=== PATIENT | female | born 1955 | race Caucasian/White ===

== ENCOUNTER 2019-12-13 10:26 | Outpatient (CLI) | payer BC, SELFPAY ==
--- NOTE | ~2019-12-13 | MM_ITS ---
EXAMINATION: MM screening [facility] BI w louise HISTORY: Screening mammogram TECHNIQUE: Craniocaudal and mediolateral oblique 3-D tomosynthesis images were obtained and synthetic 2-D images were generated. CAD analysis was submitted and interpreted. COMPARISON: No prior mammogram is available for comparison at this institution. BREAST PARENCHYMAL COMPOSITION: There are scattered areas of fibroglandular density. FINDINGS: There is no evidence of suspicious mass, calcification, or architectural distortion to sugg est malignancy in either breast. There has been no suspicious interval change. IMPRESSION: 1. No mammographic evidence of malignancy. 2. Recommend routine screening mammography in one year. BI-RADS Category 1: Negative Reviewed, dictated and finalized at location A.
== END 2019-12-13 10:27 | disposition home or self-care (01) ==
PROVIDERS: PCP Family Medicine Adolescent Medicine; Visit Provider Obstetrics & Gynecology
DX: Z12.31 Encounter for screening mammogram for malignant neoplasm of breast (principal)
CPT/HCPCS: 77063; 77067

== ENCOUNTER 2021-04-18 09:48 | Emergency (ER) | payer OTHER, SELFPAY ==
--- NOTE | ~2021-04-18 | XR_ITS ---
EXAMINATION: XR foot LT min 3V DATE: 04/18/2021 10:14 INDICATION: Left first metatarsal pain post injury TECHNIQUE: Dorsoplantar, two oblique and lateral views of the left foot were obtained. COMPARISON: None. FINDINGS: Alignment is normal. No fracture. Moderate osteoarthritis of the first metatarsophalangeal joint. Mil d osteoarthritis at several of the tarsal metatarsal and interphalangeal joints. Moderate-sized plant ar calcaneal spur. Soft tissues are unremarkable. IMPRESSION: 1. No acute osseous abnormality. 2. Mild to moderate polyarticular osteoarthritis greatest at the first metatarsophalangeal joint. Reviewed, dictated and finalized at location A. GE HAND IMPRESSION: 1. No acute osseous abnormality. 2. Mild to moderate polyarticular osteoarthritis greatest at the first metatars ophalangeal joint.
--- NOTE | 2021-04-18 09:52 | ED.LOWEXIN ---
HPI - Extremity Injury (Lower) General Chief Complaint: Extremity Injury, Lower Stated Complaint: left foot pain Time Seen by Provider: 04/18/21 10:21 Source: patient and RN notes reviewed Mode of arrival: ambulatory Limitations: no limitations History of Present Illness HPI Narrative: 65-year-old female presents with concern for left foot injury patient reports on Friday she was going to a client's house when she stepped on a rotten board in her foot through the deck. She reports dorsal pain at the base of the first, second, third digits. Reports she is to ice which decreased the swelling. She reports pain at rest and worsening pain with walking. She denies decreased sensation, strength. MD complaint: foot injury Related Data Home Medications Medication Instructions Recorded Confirmed calcium carbonate 600 mg (1,500 1 tablet PO DAILY 04/04/20 mg)-vitamin D3 200 unit tablet multivitamin 1 tablet PO DAILY 04/04/20 omega 6-vmz-akt-fish oil 100 cap PO 04/04/20 mg-160 mg-1,000 mg capsule levothyroxine [Synthroid] 100 mcg PO DAILY 04/18/21 04/18/21 Allergies Allergy/AdvReac Type Severity Reaction Status Date / Time No Known Allergies Allergy Unknown Verified 04/18/21 10:22 Review of Systems Review of Systems: CONSTITUTIONAL: Denies malaise, chills, sweats, or fever. SKIN: Denies lacerations, abrasions MUSCULOSKELETAL: Reports left dorsal foot pain, swelling, bruising NEUROLOGIC: Denies numbness, weakness All systems reviewed & are unremarkable except as noted in HPI and below PMFSH Past Medical History Medical History Hypothyroidism Surgical History Surgical History H/O umbilical hernia repair History of section History of laparoscopy History of tonsillectomy and adenoidectomy History of total hysterectomy Social History Social History Smoking status: Never smoker Alcohol intake: current Comments At time of signature, agree with nursing past medical, surgical, social and family history. There is no relevant family history pertinent to the presenting complaint Exam Narrative: GENERAL: Well-appearing, well-nourished, and in no acute distress. HEAD: Normocephalic, atraumatic. EYES: PERRLA, conjunctivae clear NECK: Supple. CHEST: Speaks in full sentences. No respiratory distress. HEART: Regular rate and rhythm. Normal and equal peripheral pulses. EXTREMITIES: [Xxx] has normal strength and sensation, normal range of motion. No edema or ecchymosis. 5/5 strength with [xxx] flexion and extension. Normal sensation with sensitivity to light touch and pain. No point tenderness. No open wounds, no skin tenting, no devitalized tissue or atrophy, no trophic changes, no obvious deformity, alignment normal, nearby joints and structures intact. Distal pulses palpable and equal bilaterally, skin warm, dry, pink. Capillary refill less than 3 seconds. SKIN: Warm, dry, no rash. NEURO: Alert and oriented x3. PSYCH: Normal mood and affect Course Course Emergency Course: Patient is aware of diagnosis, understands and agrees to treatment plan. Anticipatory guidance given. Patient agrees to follow-up as directed and is aware of reasons to seek care at the emergency department. Portions of this record may have been created with voice recognition software Vital Signs Vital signs: Reviewed. MDM - Extremity Injury (Lower) MDM Narrative Medical decision making narrative: Patients injury and pain is consistent with musculoskeletal etiology. No signs of neurological or vascular compromise on exam. Compartments and tissues are soft without signs of compartment syndrome. Pain is felt appropriate for further evaluation on an outpatient basis. Imaging Data Radiologist's impression: EXAMINATION: XR foot LT min 3V DATE: 04/18/2021 10:14 INDICATION:
[2021-04-18 10:03] VITALS: BP 151/82; PULSE 73; RESP 16; TEMP 36.9; O2SAT 99
== END 2021-04-18 10:40 | disposition home or self-care (01) ==
PROVIDERS: Emergency Provider Nurse Practitioner; PCP Family Medicine Adolescent Medicine
DX: S99.922A Unspecified injury of left foot, initial encounter (principal); W13.8XXA Fall from, out of or through other building or structure, initial encounter; E03.9 Hypothyroidism, unspecified
CPT/HCPCS: 73630; 99213; G0463

== ENCOUNTER → 2021-06-25 15:52 | Outpatient (CLI) | payer OTHER, SELFPAY ==
--- NOTE | ~2021-06-25 | XR_ITS ---
EXAMINATION: XR foot LT min 3V EXAM DATE: 06/25/2021 16:26 INDICATION: M79.672 - Pain in left foot . Attention great MTP joint. TECHNIQUE: Left foot dorsoplantar, lateral and oblique projections obtained and reviewed. Comparison is made to prior examination from 04/18/2021. FINDINGS: Left metatarsal bones unremarkable. There is a moderate-sized calcaneal spur inferiorly. There is mild to moderate 1st metatarsophalangeal joint primary osteoarthritis. Otherwise no more t smith mild polyarticular osteoarthritis. There are no bony erosions identified. There are no acute frac tures identified. IMPRESSION: 1. Mild to moderate left 1st MTP osteoarthritis. 2. Inferior calcaneal spur. Reviewed, dictated and finalized at location G. FARM HELPER
== END ==
PROVIDERS: PCP Family Medicine Adolescent Medicine; Visit Provider Physician Assistant
DX: M19.072 Primary osteoarthritis, left ankle and foot (principal); M77.32 Calcaneal spur, left foot
CPT/HCPCS: 73630

== ENCOUNTER 2021-10-02 08:22 | Outpatient (CLI) | payer MEDICARE, SELFPAY ==
--- NOTE | ~2021-10-02 | MM_ITS ---
EXAMINATION: MM screening [facility] BI w louise HISTORY: Screening TECHNIQUE: Craniocaudal and mediolateral oblique 3-D tomosynthesis images were obtained and synthetic 2-D images were generated. CAD analysis was submitted and interpreted. COMPARISON: Comparison to multiple prior studies sequentially, with oldest reviewed study dated 03/26. BREAST PARENCHYMAL COMPOSITION: There are scattered areas of fibroglandular density. FINDINGS: There is no evidence of suspicious mass, calcification, or architectural distortion to sugg est malignancy in either breast. There has been no suspicious interval change. IMPRESSION: 1. No mammographic evidence of malignancy. 2. Recommend routine screening mammography in one year. BI-RADS Category 1: Negative Reviewed, dictated and finalized at location A.
== END 2021-10-02 08:23 | disposition home or self-care (01) ==
LOC: ANHIMG 08:26
PROVIDERS: PCP Family Medicine Adolescent Medicine; Visit Provider Student in an Organized Health Care Education/Training Program
DX: Z12.31 Encounter for screening mammogram for malignant neoplasm of breast (principal)
CPT/HCPCS: 77063; 77067

== ENCOUNTER 2022-05-03 09:33 | Outpatient (CLI) | payer MEDICARE, SELFPAY ==
--- NOTE | ~2022-05-03 | DEXA_ITS ---
Bone Density Report Name: MIKHAIL PERES Age: 67 Sex: Female Ethnicity: White Date of : 1955 Indication: postmenopausal; screening for osteoporosis; hysterectomy; Referring Provider: JACKSON REEDER Study: Bone densitometry was performed. Exam Date: May 03, 2022 Accession number: [id number] Bone Density: Region BMD T-score Z-score Classification AP Spine(L1-L4) 0.944 -0.9 1.0 Normal Femoral Neck (Left) 0.802 -0.4 1.2 Normal Total Hip (Left) 1.000 0.5 1.8 Normal Femoral Neck (Right) 0.789 -0.5 1.1 Normal Total Hip (Right) 0.921 -0.2 1.2 Normal Total Hip Mean 0.961 0.2 1.5 Normal World Health Organization criteria for BMD impression classify patients as: Normal (T-score at or above -1.0), Osteopenia (T-score between -1.0 and -2.5), or Osteoporosis (T-score at or below -2.5). 10-year Fracture Risk: FRAX not reported because: All T-scores for Spine Total, Hip Total, Femoral Neck at or above -1.0 Previous Exams: Region Exam Age BMD T-score BMD Change BMD Change Date g/cm2 vs Baseline vs Previous AP Spine (L1-L4) 05/03/2022 67 0.944 -0.9 -0.021 (-2.2%) -0.016 (-1.6%) 09/15/2018 63 0.960 -0.8 -0.006 (-0.6%) -0.006 (-0.6%) 05/09/2016 61 0.966 -0.7 Total Hip(Left) 05/03/2022 67 1.000 0.5 0.026 (2.6%) 0.004 (0.4%) 09/15/2018 63 0.996 0.4 0.022 (2.2%) 0.022 (2.2%) 05/09/2016 61 0.974 0.3 Total Hip(Right) 05/03/2022 67 0.921 -0.2 -0.075 (-7.6%) -0.082 (-8.2%) 09/15/2018 63 1.003 0.5 0.006 (0.6%) 0.006 (0.6%) 05/09/2016 61 0.997 0.4 *Denotes significance at 95% confidence level, LSC for AP Spine = 0.022 g/cm2, LSC for Total Hip = 0.027 g/cm2 Clinical Information Provided by Patient: Has the following medical conditions: Hysterectomy Patient maximum height was 63 Menopause Age: 53 Drinks caffeinated beverages Onset of menses at age 12 Number of children 2 Impression: The patient has normal bone mass. The BMD for the Total Hip(Right) decreased, changing by -8.2% since the last DXA exam. Discussion: BONE DENSITY IS ABOVE THE MINIMUM DESIRABLE LEVEL AT ALL SKELETAL SITES TESTED. This patient?s bone mineral density is above the minimum desirable level (T-score -1.0 or better) at all sites measured. The patient should follow a healthful lifestyle (good nutrition with adequate calcium and vitamin D, and appropriate weight-bearing exercise). Follow-Up: Co
== END 2022-05-03 09:34 | disposition home or self-care (01) ==
PROVIDERS: PCP Family Medicine Adolescent Medicine; Visit Provider Student in an Organized Health Care Education/Training Program
DX: Z78.0 Asymptomatic menopausal state (principal)
CPT/HCPCS: 77080

== ENCOUNTER 2022-11-28 10:07 | Outpatient (CLI) | payer MEDICARE, SELFPAY ==
--- NOTE | ~2022-11-28 | MM_ITS ---
EXAMINATION: MM screening [facility] BI w louise HISTORY: Screening mammogram TECHNIQUE: Craniocaudal and mediolateral oblique 3-D tomosynthesis images were obtained and synthetic 2-D images were generated. CAD analysis was submitted and interpreted. COMPARISON: 10/02/2021, 12/13/2019, 09/15/2018 BREAST PARENCHYMAL COMPOSITION: There are scattered areas of fibroglandular density. FINDINGS: No suspicious mass, calcification, or architectural distortion are identified in either danita ast to suggest malignancy. There has been no suspicious interval change. IMPRESSION: 1. No mammographic evidence of malignancy. 2. Recommend routine screening mammography in one year. BI-RADS Category 1: Negative Reviewed, dictated and finalized at location A.
== END 2022-11-28 10:08 | disposition home or self-care (01) ==
LOC: ANHIMG 10:14
PROVIDERS: PCP Family Medicine Adolescent Medicine; Visit Provider Obstetrics & Gynecology
DX: Z12.31 Encounter for screening mammogram for malignant neoplasm of breast (principal)
CPT/HCPCS: 77063; 77067

== ENCOUNTER 2023-12-01 10:49 | Outpatient (CLI) | payer MEDICARE, SELFPAY ==
--- NOTE | ~2023-12-01 | XR_ITS ---
AP and lateral views of the right hip Clinical history: Pain Findings: No acute fracture or dislocation is seen. Osseous alignment is anatomic. Right hip joint is preserved. Soft tissues are unremarkable. Impression: No significant abnormality is seen. Reviewed, dictated and finalized at location M. Impression: No significant abnormality is seen.
== END 2023-12-01 10:50 ==
LOC: MICIMG 10:51
PROVIDERS: PCP Family Medicine Adolescent Medicine; Visit Provider Family Medicine Adolescent Medicine
DX: M25.551 Pain in right hip (principal)
CPT/HCPCS: 73502

== ENCOUNTER 2023-12-25 10:16 | Outpatient (CLI) | payer MEDICARE, SELFPAY ==
--- NOTE | ~2023-12-25 | MR_ITS ---
MRI of the right hip Clinical history: Pain Technique: Coronal T1-weighted, T2-weighted, and proton-density fat-sat images, and axial T1-weighted and proton-density fat-sat images were acquired through the pelvis. Coronal T2-weighted images and c oronal, axial, and sagittal proton-density fat-sat images were acquired through the right hip. Findings: There is no fracture or avascular necrosis of either hip. Bone marrow signals the proximal femora and pelvic bones are unremarkable. No right acetabular labral tear seen. Articular cartilage o f the hip joints is relatively well-preserved. Small bilateral hip joint effusions are present. Visualized musculature about the pelvis and right hip is unremarkable. No muscle atrophy or edema. No bursitis. Visualized tendons are intact. No soft tissue mass or fluid collection seen. IMPRESSION: Small bilateral hip joint effusions, nonspecific. No other significant abnormality seen. Reviewed, dictated and finalized at [facility].
== END 2023-12-25 10:17 ==
PROVIDERS: PCP Family Medicine Adolescent Medicine; Visit Provider Family Medicine Adolescent Medicine
DX: M25.451 Effusion, right hip (principal); M25.452 Effusion, left hip
CPT/HCPCS: 73721

== ENCOUNTER 2024-02-20 12:55 | Outpatient (CLI) | payer MEDICARE, SELFPAY ==
--- NOTE | ~2024-02-20 | MM_ITS ---
EXAMINATION: MM screening [facility] BI w louise HISTORY: Screening TECHNIQUE: Craniocaudal and mediolateral oblique 3-D tomosynthesis images were obtained and synthetic 2-D images were generated. CAD analysis was submitted and interpreted. COMPARISON: Comparison to multiple prior studies sequentially, with oldest reviewed study dated 04/25. BREAST PARENCHYMAL COMPOSITION: Not dense: There are scattered areas of fibroglandular density.. FINDINGS: There is no evidence of suspicious mass, calcification, or architectural distortion to sugg est malignancy in either breast. There has been no suspicious interval change. IMPRESSION: 1. No mammographic evidence of malignancy. 2. Recommend routine screening mammography in one year. BI-RADS Category 1: Negative Reviewed, dictated and finalized at location B.
--- NOTE | ~2024-02-20 | DEXA_ITS ---
Bone Density Report Name: MIKHAIL PERES Age: 68 Sex: Female Ethnicity: White Date of : 1955 Indication: postmenopausal; screening for osteoporosis; height loss; hysterectomy; Referring Provider: TOD FLORES Study: Bone densitometry was performed. Exam Date: February 20, 2024 Accession number: [id number] Bone Density: Region BMD T-score Z-score Classification AP Spine(L1-L4) 0.940 -1.0 1.1 Normal Femoral Neck (Left) 0.784 -0.6 1.1 Normal Total Hip (Left) 0.968 0.2 1.6 Normal Femoral Neck (Right) 0.793 -0.5 1.2 Normal Total Hip (Right) 0.928 -0.1 1.3 Normal Femoral Neck Mean 0.789 -0.5 1.2 Normal Total Hip Mean 0.948 0.1 1.5 Normal World Health Organization criteria for BMD impression classify patients as: Normal (T-score at or above -1.0), Osteopenia (T-score between -1.0 and -2.5), or Osteoporosis (T-score at or below -2.5). 10-year Fracture Risk: FRAX not reported because: All T-scores for Spine Total, Hip Total, Femoral Neck at or above -1.0 Clinical Information Provided by Patient: Has the following medical conditions: Hysterectomy Patient maximum height was 64 Menopause Age: 50 No regular weight bearing exercise Drinks caffeinated beverages Onset of menses at age 11 Number of children 2 Impression: The patient has normal bone mass. Discussion: BONE DENSITY IS ABOVE THE MINIMUM DESIRABLE LEVEL AT ALL SKELETAL SITES TESTED. This patient?s bone mineral density is above the minimum desirable level (T-score -1.0 or better) at all sites measured. The patient should follow a healthful lifestyle (good nutrition with adequate calcium and vitamin D, and appropriate weight-bearing exercise). Follow-Up: Consider repeating this study in 5 years or sooner if there is some new clinical indication. Reported by: KATARZYNA on 02/20/2024 1:27:00 PM. Reviewed, dictated and finalized at location Isabel APODACA
== END 2024-02-20 12:56 | disposition home or self-care (01) ==
LOC: CHSIMG 12:57
PROVIDERS: PCP Family Medicine Adolescent Medicine; Visit Provider Nurse Practitioner Obstetrics & Gynecology
DX: Z12.31 Encounter for screening mammogram for malignant neoplasm of breast (principal); Z78.0 Asymptomatic menopausal state
CPT/HCPCS: 77063; 77067; 77080

== ENCOUNTER 2024-08-17 01:09 | Day surgery (SDC) | payer MEDICARE, SELFPAY ==
--- OUTSIDE RECORDS SUMMARY | 2024-08-17 01:11 | XMS_ITS | Clinical Summary ---
Author Organization [facility] Address [facility] [place] [address] Care Team Providers Care Field Contact Technician Name Role Phone Agustín Quigley MD Primary Care Prov ider Soledad Polanco MD Unavailable [phone] Allergies No known active allergies Medications albuterol HFA (PROVENTIL HFA,VENTOLIN HFA,PROAIR HFA) 90 mcg/actuation inhaler 2 puffs every 4 (four) hours as needed 1 Active SUMAtriptan (IMITREX) 100 mg tablet TAKE 1 TABLET BY MOUTH AT ONSET OF HEADACHE; IF NO RELIEF, MAY REPEAT 1 TABLET AFTER AT LEAST 2 HOURS; MAX 2 TABLETS IN 24 HOURS 2 Active levothyroxine (SYNTHROID) 112 mcg tablet Brand name Synthroid - 7 pills per week 2 Active Active Problems Problem Noted Date Diagnosed Date COVID-19 12/03/2021 Assessment & Plan (12/03/2021 11:09 AM CDT): History of vaccination. No effect on her thyroid management Has immunity to COVID-19 virus 12/03/2021 Overview (12/03/2021): History of vaccine x2. However, she had some abnormal lab work a month or so after her second shot, so she has been hesitant to get the booster so far Assessment & Plan (07/08/2022 10:00 AM BUTT PRESSER): Fully vaccinated, eligible for booster but history of previous concerns after second shot. Assessment & Plan (12/03/2021 11:09 AM CDT): History of vaccine x2, current COVID infection. 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 Assessment & Plan (07/19/2021 11:31 AM BUTT PRESSER): Ongoind surveillance. Needs B12 level at this time. Mixed hyperlipidemia 07/17/2021 Overview (07/17/2021): Images from the original note were not included. Assessment & Plan (01/11/2024 3:08 PM CDT): Managed by her PCP, but needs optimal thyroid management. LDL and Tg improved Assessment & Plan (07/11/2022 7:22 AM BUTT PRESSER): Managed by her PCP, but needs optimal thyroid management and follow-up labs Assessment & Plan (12/03/2021 11:10 AM CDT): Managed by her PCP, but needs optimal thyroid medication. Assessment & Plan (07/19/2021 11:32 AM BUTT PRESSER): Managed by her PCP, but needs optimal thyroid medication. Acquired hypothyroidism 07/17/2021 Assessment & Plan (01/11/2024 3:09 PM CDT): Somewhat symptomatic, TSH low but need to see actual thyroid numbers. May need to adjust meds if she shows progressive bone loss. Assessment & Plan (07/11/2022 7:21 AM BUTT PRESSER): Clinically euthyroid, doing well but needs follow-up labs Assessment & Plan (12/03/2021 11:11 AM CDT): Symptomatically markedly improved on her current medication regimen, so it would not be beneficial to check lab work right now. Continue current management and consider follow-up labs at her next visit in 6 months Assessment & Plan (07/19/2021 11:30 AM BUTT PRESSER): Despite labs, she has symptoms of mildly low thyroid activity, so may benefit from a slight increase in her thyroid medication. We can get baseline levels before the change. Encounters Date Type Department Care Team Description 06/11/2024 Telephone [facility] Floor [address] [place] [address] Lianet Richards RMA from Last 3 Months Immunizations Immunization Administration Dates Next Due Influenza, Quadrivalent, Hig h Dose, Preservative Free, Intrr 04/09/2022 Surgical History Surgery Date Site/Laterality Comments HYSTERECTOMY W/ BILATERAL SALPINGOOPHORECTOMY 05/26/2008 - 05/25/2009 TUBAL LIGATION 05/26/1987 - 05/25/1988 SECTION 1976 and 1981 Medical History Medical History Date Comments x2 - C-sections 1976 and 1981 Cornea ulcer Social History Tobacco Use Types Packs/Day Years Used Date Smoking Tobacco: Never Smokeless Tobacco: Never Tobacco Cessation:Counseling Given: Not Answered Personal Safety Answer Date Recorded Getting School Help Needed Not on file 07/26 Comments Unknown Sex and Gender Information Value Date Recorded Sex Assigned at Not on file Legal Sex Female 11:45 AM BUTT PRESSER Gender Identity Not on file Sexual Orientation Not on file 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 file Not on file Not on f ile Obstetrics History Last Filed Vital Signs Vital Sign Reading Time Taken Comments Blood Pressure 163/87 07/09/2022 1:58 PM BUTT PRESSER Pulse 68 07/09/2022 1:58 PM BUTT PRESSER Temperature 37 C (98.6 F) 07/09/2022 1:58 PM BUTT PRESSER Respiratory Rate - - Oxygen Saturation - - Inhaled Oxygen Concentration - - Weight 95.7 kg (211 lb) 07/09/2022 1:58 PM BUTT PRESSER Height 160 cm (5' 3 ) 07/09/2022 1:58 PM BUTT PRESSER Body Mass Index 37.38 07/09/2022 1:58 PM BUTT PRESSER Plan of Treatment Health Maintenance Due Date Last Done Comments Breast Cancer Screening-Mammogram 1955 Colon Cancer Screening-Colonoscopy 1955 Depression Screening 1955 Fall Risk Assessment 1955 Hepatitis C Screening 1955 Osteoporosis Screening-Bone Density Scan 1955 DTaP/Tdap/Td Vaccine (1 - Tdap) 1966 Hepatitis B Screening 1973 Pneumococcal vaccine 65+ (1 of 1 - PCV) 2005 Zoster Vaccine (1 of 2) 2005 Well Visit 65+ 2020 Covid-19 Vaccine ( season) 2024, 07/18/2020 Influenza Vaccine (#1) 2024 04/09/2022 Insurance MEDICARE AETNA SENIOR SUPPLEMENT MEDICARE AETNA MEDICARE AETNA Care Teams Field Contact Technician Relationship Specialty Start Date End Date Agustín Quigley MD [address] [place] [id number] PCP - General Family Medicine 07/17/21 Soledad Polanco MD [address] [place] [id number] Referring Physician Endocrinology Diabetes & Metabolism 07/19/21
--- OUTSIDE RECORDS SUMMARY | 2024-08-17 01:11 | XMS_ITS | Encounter Summary ---
Author Organization [facility] Address [address] [place] [address] Phone Care Team Providers Care Corporate Securities Research Analyst Name Role Phone No, Physician Primary Care Provider [phone] Agustín Quigley MD Primary Care Prov ider Soledad Polanco MD Unavailable [phone] Encounter Details Date Type Department Care Team (Latest Contact Info) Description 04/18/2021 Orders Only [facility] E[facility] Scanning, Provider Social History Tobacco Use Types Packs/Day Years Used Date Smoking Tobacco: Never Assessed Comments Unknown Sex and Gender Information Value Date Recorded Sex Assigned at Not on file Legal Sex Female 11:45 AM ACCOUNT TECHNICIAN Gender Identity Not on file Sexual Orientation Not on file documented as of this encounter Plan of Treatment Not on file documented as of this encounter Procedures Procedure Name Priority Date/Time Associated Diagnosis Comments SCAN - LABS 04/18/2021 documented in this encounter Results * SCAN - LABS (04/18/2021) us Provider Scanning Final Result documented in this encounter Visit Diagnoses Not on filedocumented in this encounter Care Teams Corporate Securities Research Analyst Relationship Specialty Start Date End Date No, Physician PCP - General 02/03/21 07/16/21 Agustín Quigley MD [address] [place] [id number] PCP - General Family Medicine 07/17/21 Soledad Polanco MD [address] [place] [id number] Referring Physician Endocrinology Diabetes & Metabolism 07/19/21 documented as of this encounter
--- OUTSIDE RECORDS SUMMARY | 2024-08-17 01:11 | XMS_ITS | Encounter Summary ---
Author Organization [facility] Address [address] [place] [address] Phone Care Team Providers Care Glass Toughening Operator Name Role Phone No, Physician Primary Care Provider [phone] Agustín Quigley MD Primary Care Prov ider Soledad Polanco MD Unavailable [phone] Encounter Details Date Type Department Care Team (Latest Contact Info) Description 04/24/2020 Orders Only [facility] E[facility] Scanning, Provider Social History Tobacco Use Types Packs/Day Years Used Date Smoking Tobacco: Never Assessed Comments Unknown Sex and Gender Information Value Date Recorded Sex Assigned at Not on file Legal Sex Female 11:45 AM LOGISTICS SUPPLY OFFICER Gender Identity Not on file Sexual Orientation Not on file documented as of this encounter Plan of Treatment Not on file documented as of this encounter Procedures Procedure Name Priority Date/Time Associated Diagnosis Comments SCAN - LABS 04/24/2020 documented in this encounter Results * SCAN - LABS (04/24/2020) us Provider Scanning Final Result documented in this encounter Visit Diagnoses Not on filedocumented in this encounter Care Teams Glass Toughening Operator Relationship Specialty Start Date End Date No, Physician PCP - General 02/03/21 07/16/21 Agustín Quigley MD [address] [place] [id number] PCP - General Family Medicine 07/17/21 Soledad Polanco MD [address] [place] [id number] Referring Physician Endocrinology Diabetes & Metabolism 07/19/21 documented as of this encounter
--- OUTSIDE RECORDS SUMMARY | 2024-08-17 01:11 | XMS_ITS | Referral Summary ---
Author Organization [facility] Address [address] [place] [id number] Care Team Providers Care Religious Studies Professor Name Role Phone Agustín Quigley MD Primary Care Prov ider Soledad Polanco MD Unavailable [phone] Encounters Date Type Department Care Team Description 06/11/2024 Telephone [facility] Surgery [address] [place] [address] Lianet Richards RMA from Last 3 Months Allergies No known active allergies Medications albuterol [...] far Assessment & Plan (07/08/2022 10:00 AM RADIAL ARM SAW OPERATOR): Fully vaccinated, eligible for booster but history of previous concerns after second shot. Assessment & Plan (12/03/2021 11:09 AM CDT): History of vaccine x2, current COVID infection. 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 Assessment & Plan (07/19/2021 11:31 AM RADIAL ARM SAW OPERATOR): Ongoind surveillance. Needs B12 level at this time. Mixed hyperlipidemia 07/17/2021 Overview (07/17/2021): Images from the original note were not included. Assessment & Plan (01/11/2024 3:08 PM CDT): Managed by her PCP, but needs optimal thyroid management. LDL and Tg improved Assessment & Plan (07/11/2022 7:22 AM RADIAL ARM SAW OPERATOR): Managed by her PCP, but needs optimal thyroid management and follow-up labs Assessment & Plan (12/03/2021 11:10 AM CDT): Managed by her PCP, but needs optimal thyroid medication. Assessment & Plan (07/19/2021 11:32 AM RADIAL ARM SAW OPERATOR): Managed by her PCP, but needs optimal thyroid medication. Acquired hypothyroidism 07/17/2021 Assessment & Plan (01/11/2024 3:09 PM CDT): Somewhat symptomatic, TSH low but need to see actual thyroid numbers. May need to adjust meds if she shows progressive bone loss. Assessment & Plan (07/11/2022 7:21 AM RADIAL ARM SAW OPERATOR): Clinically euthyroid, doing well but needs follow-up labs Assessment & Plan (12/03/2021 11:11 AM CDT): Symptomatically markedly improved on her current medication regimen, so it would not be beneficial to check lab work right now. Continue current management and consider follow-up labs at her next visit in 6 months Assessment & Plan (07/19/2021 11:30 AM RADIAL ARM SAW OPERATOR): Despite labs, she has symptoms of mildly low thyroid activity, so may benefit from a slight increase in her thyroid medication. We can get baseline levels before the change. 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 Not on file Not on file Not on f ile Last Filed Vital Signs Vital Sign Reading Time Taken Comments Blood Pressure 163/87 07/09/2022 1:58 PM RADIAL ARM SAW OPERATOR Pulse 68 07/09/2022 1:58 PM RADIAL ARM SAW OPERATOR Temperature 37 C (98.6 F) 07/09/2022 1:58 PM RADIAL ARM SAW OPERATOR Respiratory Rate - - Oxygen Saturation - - Inhaled Oxygen Concentration - - Weight 95.7 kg (211 lb) 07/09/2022 1:58 PM RADIAL ARM SAW OPERATOR Height 160 cm (5' 3 ) 07/09/2022 1:58 PM RADIAL ARM SAW OPERATOR Body Mass Index 37.38 07/09/2022 1:58 PM RADIAL ARM SAW OPERATOR Plan of Treatment Not on file Insurance MEDICARE T [facility] MEDICARE AETNA MEDICARE AETNA Care Teams Religious Studies Professor Relationship Specialty Start Date End Date Agustín Quigley MD [address] [place] [address] PCP - General Family Medicine 07/17/21 Soledad Polanco MD [address] [place] [address] Referring Physician Endocrinology Diabetes & Metabolism 07/19/21
--- OUTSIDE RECORDS SUMMARY | 2024-08-17 01:11 | XMS_ITS | Encounter Summary ---
Author Organization [facility] Address [address] [place] [address] Phone Care Team Providers Care Operating Table Assembler Name Role Phone No, Physician Primary Care Provider [phone] Agustín Quigley MD Primary Care Prov ider Soledad Polanco MD Unavailable [phone] Encounter Details Date Type Department Care Team (Latest Contact Info) Description 04/28/2021 Orders Only [facility] Scanning, Provider Social History Tobacco Use Types Packs/Day Years Used Date Smoking Tobacco: Never Assessed Comments Unknown Sex and Gender Information Value Date Recorded Sex Assigned at Not on file Legal Sex Female 11:45 AM PATENT LEGAL ASSISTANT Gender Identity Not on file Sexual Orientation Not on file documented as of this encounter Plan of Treatment Not on file documented as of this encounter Procedures Procedure Name Priority Date/Time Associated Diagnosis Comments SCAN - LABS 04/28/2021 documented in this encounter Results * SCAN - LABS (04/28/2021) us Provider Scanning Final Result documented in this encounter Visit Diagnoses Not on filedocumented in this encounter Care Teams Operating Table Assembler Relationship Specialty Start Date End Date No, Physician PCP - General 02/03/21 07/16/21 Agustín Quigley MD [address] [place] [id number] PCP - General Family Medicine 07/17/21 Soledad Polanco MD [address] [place] [address] Referring Physician Endocrinology Diabetes & Metabolism 07/19/21 documented as of this encounter
--- OUTSIDE RECORDS SUMMARY | 2024-08-17 01:11 | XMS_ITS | Clinical Summary ---
Author Organization [facility] Address [address] [place] [address] Care Team Providers Care Compo Conveyor Operator Name Role Phone Agustín Quigley MD Primary Care Provider + Source Comments [facility],non-owned Affiliates and Associated Physician Practices is amultiple site organization consisting of ambulatory clinics and hospital sitesin [place], [place], [place] and [place]. This disclosure is being madepursuant to the Care Everywhere program and may not contain all information available regarding this patient. Last updated 18.[facility] Allergies No known active allergies Medications Be aware that medications may not be up to date on this document. Always verify current medications with the patient. No known medications Social History Tobacco Use Types Packs/Day Years Used Date Smoking Tobacco: Never Assessed Sex and Gender Information Value Date Recorded Sex Assigned at Not on file Gender Identity Not on file Sexual Orientation Not on file Plan of Treatment Health Maintenance Due Date Last Done Comments BONE DENSITY TESTING 1955 COLOGUARD (AGES 45-75) - COL ON CA SCREENING 1955 COLON MONITORING 1955 COLONOSCOPY - COLON CA SCREENING 1955 CT COLONOGRAPHY - COLON CA SCREENING 1955 Colorectal Cancer Screening 1955 FIT - COLON CA SCREENING 1955 FLEX SIG - COLON CA SCREENING 1955 LIPID TESTING 1955 MAMMOGRAM 1955 MEDICARE AWV 12 MONTHS 1955 HEPATITIS C SCREENING 04/28/1973 DTAP/TDAP/TD VACCINES (1 - Tdap) 1974 PNEUMOCOCCAL VACCINE 50+ (1 of 1 - PCV) 2005 ZOSTER VACCINE (1 of 2) 2005 COVID-19 VACCINE (1 - 2023-2 5 season) 2024 INFLUENZA VACCINE (#1) 2024 DEPRESSION SCREENING 05/26/2024 Respiratory Syncytial Virus (RSV) Vaccine Pt: or over 60 yrs (1 - 1-dose 75+ series) 2030 HEPATITIS B VACCINE Aged Out No longe r eligible based on patient's age to complete this topic HIB VACCINE Aged Out No longer eligi ble based on patient's age to complete this topic HPV VACCINE Aged Out No longer eligi ble based on patient's age to complete this topic MENINGOCOCCAL (Group B) VACC INE SHARED DECISION-MAKING Aged Out No longer eligibl e based on patient's age to complete this topic MENINGOCOCCAL GROUPS A/C/Y/W VACCINE Aged Out No longer eligible b ased on patient's age to complete this topic Care Teams Compo Conveyor Operator Relationship Specialty Start Date End Date Agustín Quigley MD [address] [address] PCP - General 03/05/19
--- OUTSIDE RECORDS SUMMARY | 2024-08-17 01:11 | XMS_ITS | Encounter Summary ---
Author Organization [facility] Address [address] [place] [address] Care Team Providers Care Electric Milkers Installer Name Role Phone Agustín Quigley MD Primary Care Provider + Encounter Details Date Type Department Care Team (Late st Contact Info) Description 07/08/2023 Lab Requisition [facility] - DermPath Lab [address] [place] [address] Yue Huerta DO [address] [facility] [address] [place] [address] Social History Tobacco Use Types Packs/Day Years Used Date Smoking Tobacco: Never Assessed Sex and Gender Information Value Date Recorded Sex Assigned at Not on file Gender Identity Not on file Sexual Orientation Not on file documented as of this encounter Plan of Treatment Not on file documented as of this encounter Procedures Procedure Name Priority Date/Time Associated Diagnosis Comments DERMATOPATHOLOGY Routine 07/08/2023 10:3 0 AM RAILWAY SIGNAL OPERATOR documented in this encounter Results * DERMATOPATHOLOGY (07/08/2023 10:30 AM RAILWAY SIGNAL OPERATOR) Case Report Dermatopathology Report Case: [id number] Authorizing Provider: Yue Huerta DO Collected: 07/08/2023 10:30 AM Ordering Location: [facility] DermPath Lab Received: 07/09/2023 07:41 AM Pathologist: Shasha Elena MD Specimen: Skin, right anterior LE 4 4:21 PM RAILWAY SIGNAL OPERATOR DERMATOPATHOLOGY LABORATORY Final Diagnosis Specimen A. 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 The specimen consists of a shave biopsy measuring 6x5x1 mm. Jar 0. 4 4:21 PM [facility] DERMATOPATHOLOGY LABORATORY Microscopic Description Specimen A. SKIN, right anterior LE: The epidermis is mildly acanthotic. There is a lichenoid infiltrate with vacuolar changes of basilar keratinocytes and scattered necrotic keratinocytes. 4 4:21 PM [facility] DERMATOPATHOLOGY LABORATORY Disclaimer An external and internal positive and negative controls are appropriate for the histochemical, immunohistochemical and immunofluorescence stain(s) in this case (if any), except where stated explicitly. The performance characteristics of the stain(s) cited in this report were developed and its performance characteristic determined by the Dermatopathology Laboratory at [facility], directed by Dr. Jagruti Elena. These tests need not be, and therefore are not, approved by the [place] Food and Drug Administration. The tests are used for clinical purposes. Billing Codes Specimen Charges Stain Charges 05212 1 4 4:21 PM RAILWAY SIGNAL OPERATOR DERMATOPATHOLOGY LABORATORY Embedded Images 4 4:21 PM [facility] DERMATOPATHOLOGY LABORATORY Pathology/Cytolo gy TISSUE SPECIMEN FROM SKIN / Unknown 07/08/2023 10:30 AM RAILWAY SIGNAL OPERATOR 07/09/2023 7:41 AM RAILWAY SIGNAL OPERATOR Yue Huerta DO LAB - PATHOLOGY/C YTOLOGY ORDERABLES DERMATOPATHOLOGY LABORATORY [facility] - Department of Dermatology [facility] Medicine [address] [place] [address], [address] Floor [address] [phone] documented in this encounter Visit Diagnoses Not on filedocumented in this encounter Care Teams Electric Milkers Installer Relationship Specialty Start Date End Date Agustín Quigley MD [address] [address] PCP - General 03/05/19 documented as of this encounter
--- OUTSIDE RECORDS SUMMARY | 2024-08-17 01:11 | XMS_ITS | Encounter Summary ---
Author Organization [facility] Address [address] [place] [address] Phone Care Team Providers Care Compliance Officer Name Role Phone No, Physician Primary Care Provider [phone] Agustín Quigley MD Primary Care Prov ider Soledad Polanco MD Unavailable [phone] Encounter Details Date Type Department Care Team (Latest Contact Info) Description 12/04/2015 Orders Only [facility] E[facility] Scanning, Provider Social History Tobacco Use Types Packs/Day Years Used Date Smoking Tobacco: Never Assessed Comments Unknown Sex and Gender Information Value Date Recorded Sex Assigned at Not on file Legal Sex Female 11:45 AM SHIP LABORER Gender Identity Not on file Sexual Orientation Not on file documented as of this encounter Plan of Treatment Not on file documented as of this encounter Procedures Procedure Name Priority Date/Time Associated Diagnosis Comments SCAN - LABS 12/04/2015 documented in this encounter Results * SCAN - LABS (12/04/2015) us Provider Scanning Final Result documented in this encounter Visit Diagnoses Not on filedocumented in this encounter Care Teams Compliance Officer Relationship Specialty Start Date End Date No, Physician PCP - General 02/03/21 07/16/21 Agustín Quigley MD [address] [place] [address] PCP - General Family Medicine 07/17/21 Soledad Polanco MD [address] [place] [address] Referring Physician Endocrinology Diabetes & Metabolism 07/19/21 documented as of this encounter
--- OUTSIDE RECORDS SUMMARY | 2024-08-17 01:11 | XMS_ITS | Clinical Summary ---
Author Organization [facility] Address [address], [address] [address] Phone Care Team Providers Care Impregnation Operator Name Role Phone Unavailable Primary Care Provider Unavailabl e Medications polyethylene glycol (MIRALAX) Powder Use entire 255g bottles with clear liquid as directed for 2 day colonoscopy prep. 2 Bottle 7 Active Social History Tobacco Use Types Packs/Day Years Used Date Smoking Tobacco: Never Assessed Comments Unknown Sex and Gender Information Value Date Recorded Sex Assigned at Not on file Legal Sex Female 10:54 PM CDT Gender Identity Not on file Sexual Orientation Not on file Plan of Treatment Health Maintenance Due Date Last Done Comments DEXA Bone Density 1955 Hepatitis C Virus (HCV) Screening 1955 TdaP Immunization 1955 Cologuard 2005 Immunochemical Fecal Occult Blood 2005 Mammogram 2005 Pneumococcal Immunization (5 0+ years) (1 of 1 - PCV) 2005 Zoster Immunization (1 of 2) 2005 Colonoscopy 08/03/2022 08/03/2012 Colorectal Cancer Screening 08/03/2022 Influenza Immunization (#1) 2024 SARS-COV-2 Immunization ( - season) 2024 Respiratory Syncytial Virus (RSV) Immunization (Adult) (1 - 1-dose 75+ series) 2030 08/03/2012 Hepatitis B Immunization Aged Out No longer eligible based on patient's age to complete this topic Meningococcal Immunization (ACWY) Aged Out No longer eligible based on patient's age to complete this topic Rotavirus Immunization Aged Out No lo nger eligible based on patient's age to complete this topic Procedures Procedure Name Priority Date/Time Associated Diagnosis Comments COLONOSCOPY Routine 08/03/2012 from Last 3 Months or Most Recently Relevant to Health Maintenance Results * COLONOSCOPY (08/03/2012) Jaren Zarco DO PROCEDURE/MINOR SURGICAL ORDERA BLES Final Result from Last 3 Months or Most Recently Relevant to Health Maintenance Insurance [facility]
[2024-08-17 08:43] VITALS: BP 140/73; PULSE 74; RESP 18; TEMP 36.1; O2SAT 97; BMI 34.4
[2024-08-17] MEDS: LACTATED RINGERS 1,000 ML 150 ML IV CONT (08:55)
[2024-08-17] MEDS: ONDANSETRON INJ 4 MG/2 ML VIAL IV PUSH (08:59)
--- NOTE | 2024-08-17 08:59 | P.PNAN_ITS ---
Anes - Initial Pre Proc Eval Procedure: Operation Date: 08/17/24 09:30 Proposed Procedures p Esophagogastroduodenoscopy & Colonoscopy - Krishna Barraza MD Date/Time: 08/17/24 08:59 Surgeon: Krishna Barraza MD Pre Op Diagnosis: hx of colon polyps, dysphagia Patient Data Age: 69 Gender: F Height: 1.6 m Weight: 88.2 kg Last Vital Signs Temp 36.1 C L 08/17/24 08:43 Pulse 74 08/17/24 08:43 Resp 18 08/17/24 08:43 BP 140/73 08/17/24 08:43 Pulse Ox 97 08/17/24 08:43 O2 Del Method Room Air 08/17/24 08:43 Allergies Allergy/AdvReac Type Severity Reaction Status Date / Time No Known Allergies Allergy Unknown Verified 08/17/24 08:41 Home Medications ?Medication ?Instructions ?Recorded ?Confirmed ?Type multivitamin (Multiple Vitamins 1 tablet PO DAILY 04/04/20 08/17/24 History tablet) omega 4-jdp-mgd-fish oil 100 1 cap PO DAILY 04/04/20 08/17/24 History mg-160 mg-1,000 mg capsule (Fish Oil) naratriptan 1 mg tablet See Rx Instructions PO .COMPLEX 10/22/23 08/09/24 History Synthroid 112 mcg tablet 112 mcg PO .COMPLEX 90 days #100 02/04/24 08/17/24 Rx (levothyroxine) tabs albuterol sulfate 90 mcg/actuation See Rx Instructions .Route 05/07/24 08/09/24 Rx aerosol inhaler .COMPLEX #9 grams sumatriptan succinate 100 mg tablet See Rx Instructions PO .COMPLEX 05/07/24 08/09/24 Rx #18 tabs ondansetron 4 mg disintegrating 4 mg PO Q6H PRN nausea and 08/09/24 Rx tablet vomiting #4 tabs Patient hx anesthesia problems: none Family hx anesthesia problems: none Results Review: All pre-operative results and documents have been reviewed as part of the pre- operative evaluation. [facility] Past Medical History Medical History Migraine with aura and without status migrainosus Hypothyroidism Surgical History Surgical History History of umbilical hernia repair (2006) History of total hysterectomy with bilateral salpingo-oophorectomy (BSO) (2007) History of tubal ligation (1986) History of cholecystectomy (1984) History of tonsillectomy and adenoidectomy (1962) History of section x2 Social History Social History Smoking status: Never smoker Second hand tobacco smoke exposure: No Alcohol intake: never Substance use: never Substance use type: does not use Living arrangements: alone Occupation/Education: occupation Gender identity (if verbalized by the patient): Female Sexual Orientation (if Verbalized by the Patient): Straight or Heterosexual Spiritual care concerns: No Agree to blood products: Yes Anes - Eval Final PreProcedure Day of Procedure 08/17/24 08:59 Patient weight: obese Heart: regular rate and rhythm Lungs: clear to auscultation Airway: Mallampati scale class II Neurological: alert and oriented Last oral intake: >/= 8 hours ASA classification: II Emergent: no Anesthetic plan: proceed Anesthesia type and monitoring: general GIVS and standard monitoring Results Review: All pre-operative results and documents have been reviewed as part of the pre- operative evaluation. Informed Consent: The patient's anesthetic plan and its attendant risks and benefits were discussed with the patient/family/POA. Questions were solicited and answers provided to the satisfaction of the patient/family/POA.
--- NOTE | 2024-08-17 09:28 | PM.HPGS ---
History of Present Illness History of Present Illness Consent: Risks, benefits, and alternatives have been discussed and questions answered. Patient agrees to proceed with procedure. Chief complaint: hx of colon polyps, dysphagia Narrative: Maggie Scott is a 69 year old female with colon polyp 5 years ago, also h/o esophageal ring with dilation Review of Systems Review of Systems: All systems reviewed & are unremarkable except as noted in HPI and below PMFSH Past Medical History Medical History (Updated 08/17/24 @ 09:29 by Krishna Barraza MD) Colon polyp Migraine with aura and without status migrainosus Hypothyroidism Surgical History Surgical History History of umbilical hernia repair (2006) History of total hysterectomy with bilateral salpingo-oophorectomy (BSO) (2007) History of tubal ligation (1986) History of cholecystectomy (1984) History of tonsillectomy and adenoidectomy (1962) History of section x2 Social History Social History Smoking status: Never smoker Second hand tobacco smoke exposure: No Alcohol intake: never Substance use: never Substance use type: does not use Living arrangements: alone Occupation/Education: occupation Gender identity (if verbalized by the patient): Female Sexual Orientation (if Verbalized by the Patient): Straight or Heterosexual Spiritual care concerns: No Agree to blood products: Yes Meds Home Medications and Allergies Home Medications ?Medication ?Instructions ?Recorded ?Confirmed ?Type multivitamin (Multiple Vitamins 1 tablet PO DAILY 04/04/20 08/17/24 History tablet) omega 3-gfc-xeo-fish oil 100 1 cap PO DAILY 04/04/20 08/17/24 History mg-160 mg-1,000 mg capsule (Fish Oil) naratriptan 1 mg tablet See Rx Instructions PO .COMPLEX 10/22/23 08/09/24 History Synthroid 112 mcg tablet 112 mcg PO .COMPLEX 90 days #100 02/04/24 08/17/24 Rx (levothyroxine) tabs albuterol sulfate 90 mcg/actuation See Rx Instructions .Route 05/07/24 08/09/24 Rx aerosol inhaler .COMPLEX #9 grams sumatriptan succinate 100 mg tablet See Rx Instructions PO .COMPLEX 05/07/24 08/09/24 Rx #18 tabs ondansetron 4 mg disintegrating 4 mg PO Q6H PRN nausea and 08/09/24 Rx tablet vomiting #4 tabs Allergies Allergy/AdvReac Type Severity Reaction Status Date / Time No Known Allergies Allergy Unknown Verified 08/17/24 08:41 Vital Signs Vital Signs - 24 hr 08/17/24 08:43 Temperature 97 F L Pulse Rate 74 Respiratory Rate 18 Blood Pressure 140/73 Pulse Oximetry 97 Oxygen Delivery Room Air Exam Const: General: comfortable and no acute distress HENMT: Face/Nose/Sinus: Normal nares present Eyes: General: appearance normal, both eyes and all related structures Neck: Neck: no JVD Resp: Auscultation: clear to auscultation bilaterally Cardio: Rate: regular rate Rhythm: regular rhythm GI: Inspection: non-distended GI Palp: Yes Soft to palpation Skin: General skin exam: normal color Neuro: General: gait normal Speech: normal speech Extrem: General: normal to inspection Psych: Mental Status: mental status grossly normal Assessment and Plan Assessment and plan (1) Dysphagia: Code(s): R13.10 - Dysphagia, unspecified Status: Acute Assessment and Plan: egd, will assess if needs dilatation again (2) Colon polyp: Code(s): K63.5 - Polyp of colon Status: Acute Assessment and Plan: colonoscopy
[2024-08-17 09:52] VITALS: BP 120/49; PULSE 58; RESP 25; O2SAT 100
--- NOTE | 2024-08-17 09:52 | SUR.OPER ---
EGD START 932, END 935 COLONOSCOPY START 938, END 949
[2024-08-17 10:02] VITALS: BP 102/40; PULSE 68; RESP 20; O2SAT 100
[2024-08-17 10:12] VITALS: BP 129/62; PULSE 61; RESP 17; O2SAT 99
== END 2024-08-17 10:24 | disposition home or self-care (01) ==
PROVIDERS: PCP Family Medicine Adolescent Medicine; Referring Provider Family Medicine Adolescent Medicine; Visit Provider Internal Medicine Gastroenterology
PROC: 0DJ08ZZ Inspection of Upper Intestinal Tract, Via Natural or Artificial Opening Endoscopic (ICD-10-PCS; CPT 45378; principal; 2024-08-17 09:30)
DX: Z12.11 Encounter for screening for malignant neoplasm of colon (principal); D12.2 Benign neoplasm of ascending colon; D12.3 Benign neoplasm of transverse colon; K63.5 Polyp of colon; K64.8 Other hemorrhoids; K57.30 Diverticulosis of large intestine without perforation or abscess without bleeding; K29.70 Gastritis, unspecified, without bleeding; E03.9 Hypothyroidism, unspecified; Z79.51 Long term (current) use of inhaled steroids; Z98.890 Other specified postprocedural states; Z90.49 Acquired absence of other specified parts of digestive tract; Z98.51 Tubal ligation status; Z87.19 Personal history of other diseases of the digestive system
CPT/HCPCS: 43450; 43239; 45385; 88305; J2003; J2405; J2704; J7120

== ENCOUNTER 2025-02-21 11:54 | Outpatient (CLI) | payer MEDICARE, SELFPAY ==
--- NOTE | ~2025-02-21 | MM_ITS ---
EXAMINATION: MM screening mariann BI w louise HISTORY: Screening TECHNIQUE: Craniocaudal and mediolateral oblique 3-D tomosynthesis images were obtained and synthetic 2-D images were generated. CAD analysis was submitted and interpreted. COMPARISON: 11/28/2022 BREAST PARENCHYMAL COMPOSITION: The breasts are heterogeneously dense, which may obscure small masses. FINDINGS: There is no evidence of suspicious mass, calcification, or architectural distortion to suggest malignancy. There has been no suspicious interval change. IMPRESSION: 1. No mammographic evidence of malignancy. Recommend routine screening mammography in one year. BI-RADS Category 2: Benign finding(s) Reviewed, dictated and finalized at location Q. IMPRESSION: 1. No mammographic evidence of malignancy. Recommend routine screening mammogra phy in one year. BI-RADS Category 2: Benign finding(s)
--- OUTSIDE RECORDS SUMMARY | 2025-02-21 12:07 | XMS_ITS | Encounter Summary ---
Author Organization [facility] Address [address] [place] [address] Care Team Providers Care Agricultural Production Engineer Name Role Phone Agustín Quigley MD Primary Care Provider + Encounter Details Date Type Department Care Team (Late st Contact Info) Description 07/08/2023 Lab Requisition [facility] - DermPath Lab [address] [place] [id number] Yue Huerta DO [address] [facility] [address] [place] [address] Social History Tobacco Use Types Packs/Day Years Used Date Smoking Tobacco: Never Assessed Comments Unknown Sex and Gender Information Value Date Recorded Sex Assigned at Not on file Legal Sex Female 6:29 PM SALES REPRESENTATIVE SALES MANAGER Gender Identity Not on file Sexual Orientation Not on file documented as of this encounter Plan of Treatment Not on file documented as of this encounter Procedures Procedure Name Priority Date/Time Associated Diagnosis Comments DERMATOPATHOLOGY Routine 07/08/2023 10:3 0 AM SALES REPRESENTATIVE SALES MANAGER documented in this encounter Results * DERMATOPATHOLOGY (07/08/2023 10:30 AM SALES REPRESENTATIVE SALES MANAGER) Case Report Dermatopathology Report Case: [id number] Authorizing Provider: Yue Huerta DO Collected: 07/08/2023 10:30 AM Ordering Location: [facility] DermPath Lab Received: 07/09/2023 07:41 AM Pathologist: Shasha Elena MD Specimen: Skin, right anterior LE 4:21 PM SALES REPRESENTATIVE SALES MANAGER DERMATOPATHOLOGY LABORATORY Final Diagnosis Specimen A. SKIN, right anterior LE: LICHEN PLANUS-LIKE KERATOSIS (BENIGN LICHENOID KERATOSIS) (L82.1) 4:21 PM SALES REPRESENTATIVE SALES MANAGER DERMATOPATHOLOGY LABORATORY at 1621 SALES REPRESENTATIVE SALES MANAGER Clinical History R/o NMSC 4 4:21 PM [facility] DERMATOPATHOLOGY LABORATORY Gross Description Specimen A: Received is one formalin filled container labeled with the patient's name and designated right anterior LE. The specimen consists of a shave biopsy measuring 6x5x1 mm. Jar 0. 4 4:21 PM [facility] DERMATOPATHOLOGY LABORATORY Microscopic Description Specimen A. SKIN, right anterior LE: The epidermis is mildly acanthotic. There is a lichenoid infiltrate with vacuolar changes of basilar keratinocytes and scattered necrotic keratinocytes. 4 4:21 PM [facility] DERMATOPATHOLOGY LABORATORY Disclaimer An external and internal positive and negative controls are appropriate for the histochemical, immunohistochemical and immunofluorescence stain(s) in this case (if any), except where stated explicitly. The performance characteristics of the stain(s) cited in this report were developed and its performance characteristic determined by the Dermatopathology Laboratory at [facility], directed by Dr. Jagruti Elena. These tests need not be, and therefore are not, approved by the [place] Food and Drug Administration. The tests are used for clinical purposes. Billing Codes Specimen Charges Stain Charges 02035 1 4 4:21 PM [facility] DERMATOPATHOLOGY LABORATORY Embedded Images 4 4:21 PM [facility] DERMATOPATHOLOGY LABORATORY Pathology/Cytolo gy TISSUE SPECIMEN FROM SKIN / Unknown 07/08/2023 10:30 AM SALES REPRESENTATIVE SALES MANAGER 07/09/2023 7:41 AM SALES REPRESENTATIVE SALES MANAGER us Yue Huerta DO LAB - PATHOLOGY/CYTOLOGY ORDERABLES Final Result DERMATOPATHOLOGY LABORATORY [facility] - Department of Dermatology [address], [address] [phone] documented in this encounter Visit Diagnoses Not on filedocumented in this encounter Care Teams Agricultural Production Engineer Relationship Specialty Start Date End Date Agustín Quigley MD [address] [address] PCP - General 03/05/19 documented as of this encounter
--- OUTSIDE RECORDS SUMMARY | 2025-02-21 12:07 | XMS_ITS | Clinical Summary ---
Author Organization [facility] Address [address] [place] [address] Care Team Providers Care Oracle Hrms Consultant Name Role Phone Agustín Quigley MD Primary Care Provider + Source Comments [facility]),non-owned Affiliates and Associated Physician Practices is amultiple site organization consisting of ambulatory clinics and hospital sitesin [place], [place], [place] and [place]. This disclosure is being madepursuant to the Care Everywhere program and may not contain all information available regarding this patient. Last updated 18.[facility] Allergies No known active allergies Medications * Be aware that medications may not be up to date on this document. Alwaysverify current medications with the patient. No known medications Social History Tobacco Use Types Packs/Day Years Used Date Smoking Tobacco: Never Assessed Comments Unknown Sex and Gender Information Value Date Recorded Sex Assigned at Not on file Legal Sex Female 6:29 PM MANAGER REPORT Gender Identity Not on file Sexual Orientation [...] 2005 ZOSTER VACCINE (1 of 2) 2005 DEPRESSION SCREENING 05/26/2024 COVID-19 VACCINE (2023-2 5 season) 2025 INFLUENZA VACCINE (#1) 2025 Respiratory Syncytial Virus (RSV) Vaccine Pt: or [...] on patient's age [place] [address] [place] [address] MEDICARE [employer] SELF PAY NO INSURANCE Member Subscriber Plan / Payer (Ef fective for All Dates) Name:Lulú Scottette Shasha Member ID:Not on file Relation to Subscriber:Not on file Name:MIKHAIL SCOTT Subscriber ID:Not on file (Home) Address: [address] [place] [id number] Payer ID:Not on file Group ID:Not on file Type:Self Pay Address: [place], [place] Care Teams Oracle Hrms Consultant Relationship Specialty Start Date End Date Agustín Quigley MD [address] [facility] [address] [place] [address] PCP - General 03/05/19
--- OUTSIDE RECORDS SUMMARY | 2025-02-21 12:08 | XMS_ITS | Encounter Summary ---
Author Organization [facility] Address [address] [place] [address] Phone Care Team Providers Care Speech Therapist Technician Name Role Phone No, Physician Primary Care Provider [phone] Agustín Quigley MD Primary Care Prov ider Soledad Polanco MD Unavailable [phone] Encounter Details Date Type Department Care Team (Latest Contact Info) Description 04/18/2021 Orders Only [facility] E[facility] Scanning, Provider Social History Tobacco Use Types Packs/Day Years Used Date Smoking Tobacco: Never Assessed Comments Unknown Sex and Gender Information Value Date Recorded Sex Assigned at Not on file Legal 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
--- OUTSIDE RECORDS SUMMARY | 2025-02-21 12:08 | XMS_ITS | Clinical Summary ---
Author Organization [facility] Address [address], [address] [address] Phone Care Team Providers Care Intake Manager Name Role Phone Unavailable Primary Care Provider [...] Health Maintenance Due Date Last Done Comments Hepatitis C Virus (HCV) Screening 1955 TdaP Immunization 1955 Cologuard 2000 Immunochemical Fecal Occult Blood 2000 Pneumococcal Immunization (5 0+ years) (1 of 1 - PCV) 2005 Zoster Immunization (1 of 2) 2005 Colonoscopy 08/03/2022 08/03/2012 Colorectal Cancer Screening 08/03/2022 Influenza Immunization (#1) 2025 SARS-COV-2 Immunization ( - season) 2025 Respiratory Syncytial Virus (RSV) Immunization (Adult) (1 - 1-dose 75+ series) 2030 Hepatitis B Immunization Aged Out No longer eligible based on patient's age to complete this topic Human Papillomavirus (HPV) Immunization Aged Out No longer eligible b ased [...] Most Recently Relevant to Health Maintenance Insurance [facility]
--- OUTSIDE RECORDS SUMMARY | 2025-02-21 12:08 | XMS_ITS | Encounter Summary ---
Author Organization [facility] Address [address] [place] [address] Phone Care Team Providers Care Green Hide Inspector Name Role Phone Agustín Quigley MD Primary Care Prov ider Soledad Polanco MD Unavailable [phone] Encounter Details Date Type Department Care Team (Latest Contact Info) Description 01/12/2025 Results [place] Met[facility] and Lipid [address] [facility] Advanced [address]th [place] [address] [place] [address] Soledad Polanco MD [address] [facility] [address] [place] [address] Comprehensive metabolic panel, Lipid panel, COPY(IES) SENT TO: Social History Tobacco Use Types Packs/Day Years Used Date Smoking Tobacco: Never Smokeless Tobacco: Never Comments Unknown Sex and Gender Information Value Date Recorded Sex Assigned at Not on file Legal Sex Female 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 The cholesterol is still somewhat high but better than before. We are awaiting the results of the CBC blood count. I would not change anything at this time. Best regards, Soledad Polanco MD documented in this encounter Plan of Treatment Not on file documented as of this encounter Visit Diagnoses Not on filedocumented in this encounter Care Teams Green Hide Inspector Relationship Specialty Start Date End Date Agustín Quigley MD PCP - General Family Medicine 07/17/21 Soledad Polanco MD Referring Physician Endocrinology Diabetes & Metabolism 07/19/21 documented as of this encounter
--- OUTSIDE RECORDS SUMMARY | 2025-02-21 12:08 | XMS_ITS | Encounter Summary ---
Author Organization [facility] Address [address] [place] [address] Phone Care Team Providers Care Band Machine Operator Name Role Phone No, Physician Primary Care Provider [phone] Agustín Quigley MD Primary Care Prov ider Soledad Polanco MD Unavailable [phone] Encounter Details Date Type Department Care Team (Latest Contact Info) Description 04/24/2020 Orders Only [facility] Scanning, Provider Social History Tobacco Use Types Packs/Day Years Used Date Smoking Tobacco: Never Assessed Comments Unknown Sex and Gender Information Value Date Recorded Sex Assigned at Not on file 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
--- OUTSIDE RECORDS SUMMARY | 2025-02-21 12:08 | XMS_ITS | Encounter Summary ---
Author Organization [facility] Address [address] [place] [address] Phone Care Team Providers Care Dramatic Coach Name Role Phone Agustín Quigley MD Primary Care Prov ider Soledad Polanco MD Unavailable [phone] Encounter Details Date Type Department Care Team (Late st Contact Info) Description 01/12/2025 Results Follow-Up [facility] Endocrinology Metabolism and Lipid [address] [facility] Advanced Medicine [address]th [place] [address] [place] [address] Soledad Polanco MD [address] [facility] [address] [place] [address] TSH, T4, free Social History Tobacco Use Types Packs/Day Years Used Date Smoking Tobacco: Never Smokeless Tobacco: Never Comments Unknown Sex and Gender Information Value Date Recorded Sex Assigned at Not on file Legal Sex Female 11:45 AM TOOL PLANNER Gender Identity Not on file Sexual Orientation Not on file 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 The results came in two different panels. The thyroid level is borderline on the high side, but again I would not make any changes at this time. Best regards, Soledad Polanco MD documented in this encounter Plan of Treatment Not on file documented as of this encounter Visit Diagnoses Not on filedocumented in this encounter Care Teams Dramatic Coach Relationship Specialty Start Date End Date Agustín Quigley MD PCP - General Family Medicine 07/17/21 Soledad Polanco MD Referring Physician Endocrinology Diabetes & Metabolism 07/19/21 documented as of this encounter
--- OUTSIDE RECORDS SUMMARY | 2025-02-21 12:08 | XMS_ITS | Encounter Summary ---
Author Organization [facility] Address [address] [place] [address] Phone Care Team Providers Care Television Mechanic Name Role Phone No, Physician Primary Care Provider [phone] Agustín Quigley MD Primary Care Prov ider Soledad Polanco MD Unavailable [phone] Encounter Details Date Type Department Care Team (Latest Contact Info) Description 04/28/2021 Orders Only [facility] E[facility] Scanning, Provider Social History Tobacco Use Types Packs/Day Years Used Date Smoking Tobacco: Never Assessed Comments Unknown Sex and Gender Information Value Date Recorded Sex Assigned at Not on file Legal 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
--- OUTSIDE RECORDS SUMMARY | 2025-02-21 12:08 | XMS_ITS | Clinical Summary ---
Author Organization [facility] Address Pending sale to [facility] [place] [address] Care Team Providers Care Chemistry Quality Control Technician Name Role Phone Agustín Quigley MD Primary Care Prov ider Soledad Polanco MD Unavailable [phone] Allergies No known active allergies Medications SUMAtriptan (IMITREX) 100 mg tablet TAKE 1 TABLET BY MOUTH AT ONSET OF HEADACHE; IF NO RELIEF, MAY REPEAT 1 TABLET AFTER AT LEAST 2 HOURS; MAX 2 TABLETS IN 24 HOURS 2 Active levothyroxine (SYNTHROID) 112 mcg tablet Brand name Synthroid - 7 pills per week 2 Active TURMERIC ORAL 1 Active tirzepatide, weight loss, (Zepbound) 10 mg/0.5 mL solution vialIndications :Body mass index 33.0-33.9, adult,Class 1 obesity due to excess calories with body mass index (BMI) of 33.0 to 33.9 in adult, unspecified whether serious comorbidity present,Mixed hyperlipidemia, BMI 33.0-33.9,adult Inject 0.5 mL (10 mg total) under the skin every 7 days 2 mL 11 5 Active insulin syringe-needle U-100 0.5 mL 29 gauge x 1/2 syringeIndicati ons:Body mass index 33.0-33.9, adult,Class 1 obesity due to excess calories with body mass index (BMI) of 33.0 to 33.9 in adult, unspecified whether serious comorbidity present,Mixed hyperlipidemia, BMI 33.0-33.9,adult Use with zepbound once weekly 10 each 11 5 Active semaglutide (Wegovy) 2.4 mg/0.75 mL auto-injectorIn dications:Class 1 obesity due to excess calories with body mass index (BMI) of 33.0 to 33.9 in adult, unspecified whether serious comorbidity present,Body mass index 33.0-33.9, adult Inject 2.4 mg under the skin every 7 days 3 mL 3 5 01/27/20 25 Discontinu ed(Alterna te therapy) Active Problems Problem Noted Date Diagnosed Date Obesity 01/06/2025 Assessment & Plan (01/10/2025 7:30 PM CDT): Doing well with Zepbound and can titrate up dose monthly depending on clinical response. COVID-19 12/03/2021 Assessment & Plan (12/03/2021 11:09 AM CDT): History of vaccination. No effect on her thyroid management Has immunity to COVID-19 virus 12/03/2021 Overview (12/03/2021): History of vaccine x2. However, she had some abnormal lab work a month or so after her second shot, so she has been hesitant to get the booster so far Assessment & Plan (07/08/2022 10:00 AM FLOOR FINISHER): Fully vaccinated, eligible for booster but history of previous concerns after second shot. Assessment & Plan (12/03/2021 11:09 AM CDT): History of vaccine x2, current COVID infection. 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 Assessment & Plan (07/19/2021 11:31 AM FLOOR FINISHER): Ongoind surveillance. Needs B12 level at this time. Mixed hyperlipidemia 07/17/2021 Overview (07/17/2021): Images from the original note were not included. Assessment & Plan (01/10/2025 7:28 PM CDT): Not at high risk. Unable to tolerate rosuvastatin. Working on weight management, better diet. Assessment & Plan (01/11/2024 3:08 PM CDT): Managed by her PCP, but needs optimal thyroid management. LDL and Tg improved Assessment & Plan (07/11/2022 7:22 AM FLOOR FINISHER): Managed by her PCP, but needs optimal thyroid management and follow-up labs Assessment & Plan (12/03/2021 11:10 AM CDT): Managed by her PCP, but needs optimal thyroid medication. Assessment & Plan (07/19/2021 11:32 AM FLOOR FINISHER): Managed by her PCP, but needs optimal thyroid medication. Acquired hypothyroidism 07/17/2021 Assessment & Plan (01/10/2025 7:29 PM CDT): Clinically euthyroid, doing well Assessment & Plan (01/11/2024 3:09 PM CDT): Somewhat symptomatic, TSH low but need to see actual thyroid numbers. May need to adjust meds if she shows progressive bone loss. Assessment & Plan (07/11/2022 7:21 AM FLOOR FINISHER): Clinically euthyroid, doing well but needs follow-up labs Assessment & Plan (12/03/2021 11:11 AM CDT): Symptomatically markedly improved on her current medication regimen, so it would not be beneficial to check lab work right now. Continue current management and consider follow-up labs at her next visit in 6 months Assessment & Plan (07/19/2021 11:30 AM FLOOR FINISHER): Despite labs, she has symptoms of mildly low thyroid activity, so may benefit from a slight increase in her thyroid medication. We can get baseline levels before the change. Encounters Date Type Department Care Team Description 01/21/2025 Telephone [facility] Metabolism and Lipid [address] [place] [address] Anastasia Macedo, RN zepbound vs wegovy dosing 01/12/2025 Results Follow-Up [facility] Metabolism and Lipid [address] [phone] Soledad Polanco MD TSH, T4, free 01/12/2025 Results Follow-Up [facility] Metabolism and Lipid [address] [address] Soledad Polanco MD Comprehensive metabolic panel, Lipid panel, COPY(IES) SENT TO: 01/12/2025 Telephone [facility] Metabolism and Lipid [address] [address] Anastasia Macedo RN thyroid lab orders 01/10/2025 Telephone [facility] Metabolism and Lipid [address] [address] Yesenia Mariee, RMA Prior Auth (Zepbound 10mg/0.5ml) 01/06/2025 12:00 PM CDT Telemedicine [facility] Metabolism and Lipid [address] [address] Soledad Polanco MD Acquired hypothyroidism (Primary Dx); Mixed hyperlipidemia; Class 1 obesity due to excess calories with body mass index (BMI) of 33.0 to 33.9 in adult, unspecified whether serious comorbidity present from Last 3 Months Immunizations Immunization Administration Dates Next Due Influenza, Quadrivalent, Hig h Dose, Preservative Free, Intrr 04/09/2022 Surgical History Surgery Date Site/Laterality Comments HYSTERECTOMY W/ BILATERAL SALPINGOOPHORECTOMY 05/26/2008 - 05/25/2009 TUBAL LIGATION 05/26/1987 - 05/25/1988 SECTION 1976 and 1981 Medical History Medical History Date Comments x2 - C-sections 1976 and 1982 Cornea ulcer Social History Tobacco Use Types Packs/Day Years Used Date Smoking Tobacco: Never Smokeless Tobacco: Never Tobacco Cessation:Counseling Given: Not Answered Comments Unknown Sex and Gender Information Value Date Recorded Sex Assigned at Not on file Legal Sex Female 11:45 AM FLOOR FINISHER Gender Identity Not on file Sexual Orientation Not on file 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 Not on file Not on f ile Obstetrics History Last Filed Vital Signs Vital Sign Reading Time Taken Comments Blood Pressure 163/87 07/09/2022 1:58 PM FLOOR FINISHER Pulse 68 07/09/2022 1:58 PM FLOOR FINISHER Temperature 37 C (98.6 F) 07/09/2022 1:58 PM FLOOR FINISHER Respiratory Rate - - Oxygen Saturation - - Inhaled Oxygen Concentration - - Weight 85.7 kg (189 lb) 01/06/2025 12:00 PM CDT Height 160 cm (5' 3) 01/06/2025 12:00 PM CDT Body Mass Index 33.48 01/06/2025 12:00 PM CDT Plan of Treatment Health Maintenance Due Date [...] 2005 Well Visit 65+ 2020 Covid-19 Vaccine (3 - season) 2025, 07/18/2020 Influenza Vaccine (#1) 2025 04/09/2022 Procedures Procedure Name Priority Date/Time Associated Diagnosis Comments T3, FREE Routine 01/12/2025 10:20 AM CDT Acquired hypothyroidism T4, FREE Routine 01/12/2025 10:20 AM CDT Acquired hypothyroidism TSH Routine 01/12/2025 10:20 AM CDT Acquired hypothyroidism COPY(IES) SENT TO: Routine 01/12/2025 10 :01 AM CDT LIPID PANEL Routine 01/12/2025 10:01 AM CDT Acquired hypothyroidism Mixed hyperlipidemia CBC WITH AUTO DIFFERENTIAL Routine 01/12/2025 10:01 AM CDT Acquired hypothyroidism COMPREHENSIVE METABOLIC PANEL Routine 01/12/2025 10:01 AM CDT Acquired hypothyroidism from Last 3 Months Results * T3, free (01/12/2025 10:20 AM CDT) Free T3 3.0 2.3 - 4.2 pg/mL [facility] Blood 01/12/2025 10:2 0 AM CDT 01/12/2025 10:20 AM CDT us Soledad Polanco MD LAB BLOOD ORDERABLES Final Result [facility] [address] [place] [address] * (ABNORMAL) TSH (01/12/2025 10:20 AM CDT) TSH 0.10(L) 0.40 - 4.50 mIU/L [facility] 01/12/2025 10:2 0 AM CDT 01/12/2025 10:20 AM CDT Soledad Polanco MD LAB BLOOD ORDERABLES Final Result [facility] [address] [place] [address] * T4, free (01/12/2025 10:20 AM CDT) Free T4 1.8 0.8 - 1.8 ng/dL [facility] Blood 01/12/2025 10:2 0 AM CDT 01/12/2025 10:20 AM CDT Soledad Polanco MD LAB BLOOD ORDERABLES Final Result [facility] [address] [place] [address] * COPY(IES) SENT TO: (01/12/2025 10:01 AM CDT) Pathologist [facility] COPY(IES) SENT TO: [facility] Comment: [facility] [address] [place] [address] 01/12/2025 10:0 1 AM CDT 01/12/2025 10:02 AM CDT Narrative [facility] - 01/13/2025 2:41 AM CDT FASTING:YES FASTING: YES Soledad Polanco MD LAB BLOOD ORDERABLES Final Result [facility] * (ABNORMAL) CBC with auto differential (01/12/2025 10:01 AM CDT) Pathologist [facility] WBC 5.5 3.8 - 10.8 Thousand/u L [facility] RBC, POC 4.92 3.80 - 5.10 Million/uL [facility] Hgb 15.0 11.7 - 15.5 g/dL [facility] Hct 48.7(H) 35.0 - 45.0 % [facility] MCV 99.0 80.0 - 100.0 fL [facility] MCH 30.5 27.0 - 33.0 pg [facility] MCHC 30.8(L) 32.0 - 36.0 g/dL [facility] Comment: For adults, a slight decrease in the calculated MCHC value (in the range of 30 to 32 g/dL) is most likely not clinically significant; however, it should be interpreted with caution in correlation with other red cell parameters and the patient's clinical condition. Rdw 13.6 11.0 - 15.0 % [facility] Platelets 254 140 - 400 Thousand/u L [facility] MPV 11.9 7.5 - 12.5 fL [facility] Neutrophils, abs 2,492 1,500 - 7,800 cells/uL [facility] Lymphocytes, abs 2,288 850 - 3,900 cells/uL [facility] Monocyte abs 572 200 - 950 cells/uL [facility] Eosinophils, abs 121 15 - 500 cells/uL [facility] Basophils, abs 28 0 - 200 cells/uL [facility] Neutrophils 45.3 % [facility] Lymphocyte pct 41.6 % [facility] Monocytes 10.4 % [facility] Eosinophils 2.2 % [facility] Basophils 0.5 % [facility] Blood 01/12/2025 10:0 1 AM CDT 01/12/2025 10:02 AM CDT Narrative [facility] - 01/13/2025 2:41 AM CDT FASTING:YES FASTING: YES Soledad Polanco MD LAB BLOOD ORDERABLES Final Result [facility] [address] [place] [address] * (ABNORMAL) Lipid panel (01/12/2025 10:01 AM CDT) Pathologist [facility] Cholesterol 211(H) <200 mg/dL [facility] HDL 69 > OR = 50 mg/dL [facility] Triglycerides 109 <150 mg/dL [facility] LDL 120(H) mg/dL (calc) [facility] Comment: Reference range: <100 Desirable range <100 mg/dL for primary prevention; <70 mg/dL for patients with CHD or diabetic patients with > or = 2 CHD risk factors. LDL-C is now calculated using the Dean-Jade calculation, which is a validated novel method providing better accuracy than the Friedewald equation in the estimation of LDL-C. Dean SS et al. MERRICK. 2013;310(19): 9611-5960 (http://education.dotloop/faq/GLL997) Chol/HDL ratio 3.1 <5.0 (calc) [facility] Non-HDL, (LDL+VLDL) 142(H) <130 mg/dL (calc) [facility] Comment: For patients with diabetes plus 1 major ASCVD risk factor, treating to a non-HDL-C goal of <100 mg/dL (LDL-C of <70 mg/dL) is considered a therapeutic option. Blood 01/12/2025 10:0 1 AM CDT 01/12/2025 10:02 AM CDT Narrative [facility] - 01/13/2025 2:41 AM CDT FASTING:YES FASTING: YES Soledad Polanco MD LAB BLOOD ORDERABLES Final Result [facility] [address] [place] [address] * Comprehensive metabolic panel (01/12/2025 10:01 AM CDT) [facility] Glucose 95 65 - 99 mg/dL [facility] Comment: Fasting reference interval BUN 15 7 - 25 mg/dL [facility] Creatinine 0.92 0.50 - 1.05 mg/dL [facility] eGFR 67 > OR = 60 mL/min/1.7 3m2 [facility] BUN/creat ratio SEE NOTE: 6 - 22 (calc) [facility] Comment: Not Reported: BUN and Creatinine are within reference range. Sodium 140 135 - 146 mmol/L [facility] Potassium, pl 4.8 3.5 - 5.3 mmol/L [facility] Chloride 105 98 - 110 mmol/L [facility] CO2 28 20 - 32 mmol/L [facility] Calcium 10.0 8.6 - 10.4 mg/dL [facility] Protein, sr 7.2 6.1 - 8.1 g/dL [facility] Albumin 4.7 3.6 - 5.1 g/dL [facility] GLOBULIN 2.5 1.9 - 3.7 g/dL (calc) [facility] Alb/glob ratio 1.9 1.0 - 2.5 (calc) [facility] Bilirubin, total 0.7 0.2 - 1.2 mg/dL [facility] Alk phos 67 37 - 153 U/L [facility] AST 16 10 - 35 U/L [facility] ALT (SGPT) 14 6 - 29 U/L [facility] Blood 01/12/2025 10:0 1 AM CDT 01/12/2025 10:02 AM CDT Narrative [facility] - 01/13/2025 2:41 AM CDT FASTING:YES FASTING: YES Soledad Polanco MD LAB BLOOD ORDERABLES Final Result Performing Organization Address City/State/[facility] Co de Phone Number [facility] [address] [place] [address] from Last 3 [place] [address] [employer] S[employer] [facility] [place] [id number] MEDICARE [facility] [place] [address] [place] [address] Care Teams Chemistry Quality Control Technician Relationship Specialty Start Date End Date Agustín Quigley MD PCP - General Family Medicine 07/17/21 Soledad Polanco MD Referring Physician Endocrinology Diabetes & Metabolism 07/19/21
--- OUTSIDE RECORDS SUMMARY | 2025-02-21 12:08 | XMS_ITS | Encounter Summary ---
Author Organization [facility] Address [address] [place] [address] Phone Care Team Providers Care Blow Down Operator Name Role Phone No, Physician Primary Care Provider [phone] Agustín Quigley MD Primary Care Prov ider Soledad Polanco MD Unavailable [phone] Encounter Details Date Type Department Care Team (Latest Contact Info) Description 12/04/2015 Orders Only [facility] EML Scanning, Provider Social History Tobacco Use Types Packs/Day Years Used Date Smoking Tobacco: Never Assessed Comments Unknown Sex and Gender Information Value Date Recorded Sex Assigned at Not on file Legal Sex Female 11:45 AM FINANCIAL AIDS OFFICER Gender Identity Not on file Sexual [...] on filedocumented in this encounter Care Teams Blow Down Operator Relationship Specialty Start Date End Date No, Physician PCP - General 02/03/21 07/16/21 Agustín Quigley MD PCP - General Family Medicine 07/17/21 Soledad Polanco MD Referring Physician Endocrinology Diabetes & Metabolism 07/19/21 documented as of this encounter
== END 2025-02-21 11:55 | disposition home or self-care (01) ==
LOC: CHSIMG 11:56
PROVIDERS: PCP Family Medicine Adolescent Medicine; Visit Provider Family Medicine Adolescent Medicine
DX: Z12.31 Encounter for screening mammogram for malignant neoplasm of breast (principal)
CPT/HCPCS: 77063; 77067